=== PATIENT | male | born 1950 | race Hispanic/Latino ===

== ENCOUNTER → 2018-01-11 | Outpatient (CLI) | payer OTHER | END | disposition home or self-care (01) | LOC: OIH 16:19 | PROVIDERS: ATTEND Family Medicine | DX: M25.512 Pain in left shoulder (principal) | CPT/HCPCS: 73030 ==

== ENCOUNTER → 2018-06-05 | Outpatient (CLI) | payer OTHER | END | disposition home or self-care (01) | LOC: RAH 09:45 | PROVIDERS: ATTEND Family Medicine | DX: I10 Essential (primary) hypertension (principal); I70.0 Atherosclerosis of aorta | CPT/HCPCS: 93306 ==

== ENCOUNTER → 2019-06-20 | Outpatient (CLI) | payer OTHER | END | disposition home or self-care (01) | LOC: OIH 08:17 | PROVIDERS: ATTEND Family Medicine | DX: J44.9 Chronic obstructive pulmonary disease, unspecified (principal); M47.814 Spondylosis without myelopathy or radiculopathy, thoracic region | CPT/HCPCS: 71046 ==

== ENCOUNTER → 2019-06-29 | Outpatient (CLI) | payer OTHER ==
[~2019-06-29] MED LIST: REGADENOSON 0.4 MG/5 ML PF SYG IVP SCH
== END | disposition home or self-care (01) ==
LOC: SHCH 08:44
PROVIDERS: ATTEND Internal Medicine Cardiovascular Disease
DX: R07.9 Chest pain, unspecified (principal)
CPT/HCPCS: 78452; 93017; 96374; A9500 ×2; J2785

== ENCOUNTER → 2020-02-26 | Outpatient (CLI) | payer OTHER | END | disposition home or self-care (01) | LOC: RAH 13:10 | PROVIDERS: ATTEND Internal Medicine Cardiovascular Disease | DX: Z13.6 Encounter for screening for cardiovascular disorders (principal) | CPT/HCPCS: 75571 ==

== ENCOUNTER → 2020-12-31 | Outpatient (CLI) | payer OTHER | END | disposition home or self-care (01) | LOC: RAH 10:42 | PROVIDERS: ATTEND Family Medicine | DX: K21.9 Gastro-esophageal reflux disease without esophagitis (principal); R13.10 Dysphagia, unspecified | CPT/HCPCS: 74230; 92611 ==

== ENCOUNTER → 2021-09-18 | Outpatient (CLI) | payer OTHER ==
[2021-09-18] MEDS: REGADENOSON 0.4 MG/5 ML PF SYG IVP SCH (12:39)
== END | disposition home or self-care (01) ==
LOC: RAH 09:02
PROVIDERS: ATTEND Family Medicine
DX: I11.0 Hypertensive heart disease with heart failure (principal); R07.9 Chest pain, unspecified; I20.9 Angina pectoris, unspecified
CPT/HCPCS: 78452; 93017; 96374; A9500 ×2; J2785

== ENCOUNTER → 2021-09-30 | Outpatient (CLI) | payer OTHER | END | disposition home or self-care (01) | LOC: RAH 12:21 | PROVIDERS: ATTEND Family Medicine | DX: I08.8 Other rheumatic multiple valve diseases (principal); I20.9 Angina pectoris, unspecified; I11.0 Hypertensive heart disease with heart failure; I50.9 Heart failure, unspecified; E78.5 Hyperlipidemia, unspecified; E66.9 Obesity, unspecified | CPT/HCPCS: 93306 ==

== ENCOUNTER 2022-02-19 06:41 | Day surgery (SDC) | payer OTHER ==
[2022-02-10 13:24] LABS: BASOPHILS % (AUTO) 1.1 % (0.0-5.0); HEMATOCRIT 41.6 % (42-54); MEAN CORPUSCULAR HEMOGLOBIN 28.7 pg (27.0-33.0); MEAN CORPUSCULAR HGB CONC 32.9 g/dL (32.0-36.0); MONOCYTES % (AUTO) 11.8 % (3.0-13.0); NEUTROPHILS % (AUTO) 56.9 % (40.0-77.0); PLATELET COUNT (AUTO) 249 K/uL (130-400); RED BLOOD CELL COUNT(AUTO) 4.78 MIL/uL (4.50-6.20); RED CELL DISTRIBUTION WIDTH 13.5 % (11.0-15.5); WHITE BLOOD COUNT (AUTO) 6.5 K/uL (4.8-10.8)
[2022-02-10 13:35] LABS: CREATININE 1.1 mg/dL (0.5-1.5); POTASSIUM 4.8 mmol/L (3.5-5.1)
[2022-02-11 11:42] VITALS: BP 142/88
[~2022-02-19] VITALS: Ht 165.1 cm; Wt 81.2 kg
[2022-02-19] VITALS (13 sets, daily range): BP systolic 114–160; BP diastolic 59–115
[~2022-02-19 06:41] MED LIST changes: +ALBUTEROL IH; +AMOX875T2 PO; +APIX5TAB PO; +BACL20TA PO; +CEFTRIAXONE 1G VIAL IVP SCH; +FINA5TAB41 PO; +FURO20TA4 PO; +LISI40TA9 PO; +METO100T14 PO; +NITR0.4T50 SL; +QUET100T34 PO; +QUET50TA24 PO; -REGADENOSON 0.4 MG/5 ML PF SYG IVP SCH; +SERT-439 PO
[2022-02-19] MEDS ORDERED: LACTATED RINGERS 1000ML 1,000 ML IV ONE (07:04)
[2022-02-19] MEDS ORDERED: GENTAMICIN SULFATE 80 MG/2 ML VIAL ONE (08:02)
[2022-02-19] MEDS ORDERED: FENTANYL CITRATE PF 50 MCG/1 ML 2ML VIAL ONE (09:33)
[2022-02-19] MEDS ORDERED: MIDAZOLAM HCL 1 MG/ML 2ML VIAL ONE (09:33)
[2022-02-19] MEDS ORDERED: CEFTRIAXONE 1G VIAL IVP ONE (09:46)
== END 2022-02-19 13:10 | disposition home or self-care (01) ==
LOC: DAH 06:41
PROVIDERS: ATTEND Urology
DX: R97.20 Elevated prostate specific antigen [PSA] (principal); Z20.822 Contact with and (suspected) exposure to COVID-19; N40.0 Benign prostatic hyperplasia without lower urinary tract symptoms; I10 Essential (primary) hypertension; J44.9 Chronic obstructive pulmonary disease, unspecified; I25.10 Atherosclerotic heart disease of native coronary artery without angina pectoris; I48.91 Unspecified atrial fibrillation; Z86.73 Personal history of transient ischemic attack (TIA), and cerebral infarction without residual deficits; Z79.899 Other long term (current) drug therapy; Z79.01 Long term (current) use of anticoagulants
CPT/HCPCS: 80048; 85025; 87426 ×2; 36415; 93005; 55700; 76872; 76942; A4663; J7120; J3010; J1580; J0696 ×2; J2250; A4215 ×2; A4649; A4223; A4222; A4221

== ENCOUNTER → 2022-02-20 | Outpatient (CLI) | payer OTHER ==
[~2022-02-20] MED LIST changes: -CEFTRIAXONE 1G VIAL IVP SCH; +IOHEXOL-300 50 ML VIAL IV ONE
== END | disposition home or self-care (01) ==
LOC: RAH 11:21
PROVIDERS: ATTEND Family Medicine
DX: G31.9 Degenerative disease of nervous system, unspecified (principal); R51.9 Headache, unspecified; M54.2 Cervicalgia
CPT/HCPCS: 70470; Q9967

== ENCOUNTER 2022-09-03 06:35 | Day surgery (SDC) | payer OTHER ==
[2022-09-02 12:45] LABS: BASOPHILS % (AUTO) 1.2 % (0.0-5.0); EOSINOPHILS % (AUTO) 1.4 % (0.0-8.0); HEMATOCRIT 40.8 % (42-54); LYMPHOCYTES % (AUTO) 28.5 % (21.0-51.0); MEAN CORPUSCULAR HEMOGLOBIN 28.5 pg (27.0-33.0); MEAN CORPUSCULAR HGB CONC 32.8 g/dL (32.0-36.0); MEAN CORPUSCULAR VOLUME 86.6 fL (79-99); NEUTROPHILS % (AUTO) 57.7 % (40.0-77.0); PLATELET COUNT (AUTO) 241 K/uL (130-400); RED BLOOD CELL COUNT(AUTO) 4.71 MIL/uL (4.50-6.20); RED CELL DISTRIBUTION WIDTH 13.8 % (11.0-15.5)
[2022-09-02 13:00] LABS: INR 1.03 (0.85-1.15); PROTHROMBIN TIME 11.2 SEC (9.6-11.6)
[2022-09-02 13:01] LABS: PARTIAL THROMBOPLASTIN TIME 26.5 SEC (26.3-35.5)
[2022-09-02 13:02] LABS: BILIRUBIN,DIRECT 0.2 mg/dL (0.0-0.3); CREATININE 1.1 mg/dL (0.5-1.5); POTASSIUM 4.3 mmol/L (3.5-5.1); TOTAL PROTEIN, SERUM 7.3 g/dL (6.0-8.3)
[2022-09-02 13:07] VITALS: BP 180/108
[2022-09-03] VITALS (17 sets, daily range): BP systolic 148–190; BP diastolic 23–92
[~2022-09-03] VITALS: Ht 162.6 cm; Wt 82.0 kg
[~2022-09-03 06:35] MED LIST changes: -AMOX875T2 PO; +ATOR20TA65 PO; +BACL10TA PO; -BACL20TA PO; -IOHEXOL-300 50 ML VIAL IV ONE; -NITR0.4T50 SL; -QUET100T34 PO; +QUET150T20 PO; -QUET50TA24 PO
[2022-09-03] MEDS ORDERED: LACTATED RINGERS 1000ML 1,000 ML IV ONE (07:36)
[2022-09-03] MEDS: CEFAZOLIN SODIUM 2 GM VIAL ONE ×2 (07:47→09:13)
[2022-09-03] MEDS ORDERED: SUCCINYLCHOLINE CHLORIDE 20 MG/ML 10 ML VIAL ONE (09:09)
[2022-09-03] MEDS ORDERED: LIDOCAINE PF 100MG/5ML (2%) SYRINGE 5ML ONE ×2 (09:09→09:13)
[2022-09-03] MEDS ORDERED: FENTANYL CITRATE PF 50 MCG/1 ML 2ML VIAL ONE (09:10)
[2022-09-03] MEDS ORDERED: PROPOFOL 10 MG/ML 20ML VIAL IV ONE (09:10)
[2022-09-03] MEDS ORDERED: GLYCOPYRROLATE 1 MG/5 ML SYRINGE ONE (09:10)
[2022-09-03] MEDS ORDERED: MIDAZOLAM HCL 1 MG/ML 2ML VIAL ONE (09:10)
[2022-09-03] MEDS ORDERED: ROCURONIUM 10MG/1ML SYR 10 MG/ML ML ONE (09:10)
[2022-09-03] MEDS ORDERED: NEOSTIGMINE 5MG/5ML SYR IV ONE (09:10)
[2022-09-03] MEDS ORDERED: BUPIVACAINE/PF 0.25% 30ML VIAL IJ ONE (09:26)
[2022-09-03] MEDS ORDERED: MEPERIDINE-PF 25 MG/ML SYG ONE (10:09)
[2022-09-03] MEDS ORDERED: HYDRALAZINE 20MG/ML VIAL ONE (10:41)
== END 2022-09-03 12:05 | disposition home or self-care (01) ==
LOC: DAH 06:35
PROVIDERS: ATTEND Surgery
DX: K40.30 Unilateral inguinal hernia, with obstruction, without gangrene, not specified as recurrent (principal); Z20.822 Contact with and (suspected) exposure to COVID-19; N43.3 Hydrocele, unspecified; I10 Essential (primary) hypertension; I48.91 Unspecified atrial fibrillation; E78.00 Pure hypercholesterolemia, unspecified; Z86.73 Personal history of transient ischemic attack (TIA), and cerebral infarction without residual deficits; Z98.890 Other specified postprocedural states; Z79.01 Long term (current) use of anticoagulants; Z79.899 Other long term (current) drug therapy
CPT/HCPCS: 80076; 80048; 85025; 85610; 85730; 87426; 36415; 93005; 49507; 64486; 55040; A6260; A4663; J7030; A4452; A4344; J7120; J3010; J3490 ×2; J2710; J0330; J2001 ×2; J0360; J2250; J2704; J2175; J0690; A4215; A4223; A4222; A4221; A4600